=== PATIENT | male | born 1965 | race Caucasian/White ===

== ENCOUNTER → 2017-04-20 | Outpatient (CLI) | payer OTHER ==
[~2017-04-20] MED LIST: IOPAMIDOL (ISOVUE-300) 100 ML BTL ONE
== END ==
LOC: FIMAGING 17:27
PROVIDERS: ATTEND Surgery
DX: R10.31 Right lower quadrant pain (principal); R16.1 Splenomegaly, not elsewhere classified
CPT/HCPCS: Q9967